=== PATIENT | male | born 1995 | race American Indian/Alaskan Native ===

== ENCOUNTER 2016-09-02 23:37 | Emergency (ER) | payer SELFPAY ==
[2016-09-02 23:46] VITALS: BP 127/75
[2016-09-03] MEDS ORDERED: TRIPLE ANTIBIOTIC TP ONE ×2 (03:18→03:21)
[2016-09-03] MEDS ORDERED: BOOSTRIX IM ONE (03:22)
--- NOTE | 2016-09-03 03:25 | Emergency Department Report ---
ED Laceration HPI - HPI Chief Complaint: Wound/Laceration Stated Complaint: RT EYE INJURY Time Seen by Provider: 09/03/16 02:55 Location: Head Severity: mild Laceration Symptoms: No Foreign Body Sensation, No Numbness, No Weakness, No Pain Other History: 20-year-old male presents to the ED complaining of laceration to right episcop[place] proximal to the eyebrow. Patient states he was playing basketball earlier today when another player bumped heads with his he got up laceration. Patient's states his vaccination is unknown. He denies head pain he denies blurry vision denies loss of vision or any other problems ED Review of Systems ROS: Stated complaint: RT EYE INJURY Other details as noted in HPI Constitutional: denies: chills, fever Eyes: denies: eye pain, eye discharge, vision change ENT: denies: ear pain, throat pain Respiratory: denies: cough, shortness of breath, wheezing Cardiovascular: denies: chest pain, palpitations Endocrine: no symptoms reported Gastrointestinal: denies: abdominal pain, nausea, diarrhea Genitourinary: denies: urgency, dysuria Musculoskeletal: denies: back pain, joint swelling, arthralgia Skin: denies: rash, lesions Neurological: denies: headache, weakness, paresthesias Psychiatric: denies: anxiety, depression Hematological/Lymphatic: denies: easy bleeding, easy bruising ED Past Medical Hx - Past Medical History Previous Medical History?: No - Surgical History Past Surgical History?: No - Social History Smoking Status: Never Smoker Substance Use Type: None - Medications Home Medications: Home Medications Medication Instructions Recorded Confirmed Last Taken Type Cephalexin [Keflex] 500 mg PO Q12HR #10 cap 09/03/16 Unknown Rx Ibuprofen [Motrin] 600 mg PO Q8H PRN #30 tablet 09/03/16 Unknown Rx Laceration Physical Exam - Exam General: Vital signs noted. No distress. Alert and acting appropriately. Wound Length (cm): 3 Laceration Location: Head Full Body Front + Back: 1 - 3 cm lac not involving eye lid Laceration Exam: Yes Normal Distal CMS, No Foreign Body, No Exposed Tendon, Vessel, or Nerve, No Tendon Injury ED Course Vital Signs 09/02/16 23:41 Temperature 98.6 F Pulse Rate 76 Respiratory 20 Rate Blood Pressure 127/75 O2 Sat by Pulse 98 Oximetry - Laceration /Wound Repair Right Face Wound Location: face Wound Length (cm): 3 Wound's Depth, Shape: superficial, linear Wound Explored: clean Irrigated w/ Saline (ccs): 100 Betadine Prep?: Yes Anesthesia: 1% Lidocaine Volume Anesthetic (ccs): 2 Wound Repaired With: sutures Suture Size/Type: 3:0 Number of Sutures: 6 Layer Closure?: No Sterile Dressing Applied?: Yes ED Medical Decision Making - Medical Decision Making 20-year-old female presents with facial laceration. ED course: Patient received tetanus booster The 3cm laceration wound was prepped and draped in sterile fashion. Anesthesia was achieved with 2mL of 1% lidocaine. The wound was irrigated with 100cc NS and explored. There were no foreign bodies The wound was reapproximated in 1 layer with 6 sutures suing with 3-0 Vicryl absorbable sutures in the dermis with interrupted sutures percutaneously. There was excellent reapproximation of the wound edges. The patient tolerated the procedure without complication. Discussed acute one care patient discussed to return for wound check. 5-7 days. Vital signs are stable patient is in acute distress patient tolerated procedure well Critical care attestation.: If time is entered above; I have spent that time in minutes in the direct care of this critically ill patient, excluding procedure time. ED Disposition Clinical Impression: Laceration of eyebrow without complication Qualifiers: Encounter type: initial encounter Laterality: right Qualified Code(s): S01.111A - Laceration without foreign body of right eyelid and periocular area, initial encounter Disposition: DC-01 TO HOME OR SELFCARE Is pt being admited?: No Does the pt Need Aspirin: No Condition: Stable Instructions: Suture Care (ED), Laceration (ED), Suture Removal (ED) Additional Instructions: Return in 10 days for suture removal Prescriptions: Cephalexin [Keflex] 500 mg PO Q12HR #10 cap Ibuprofen [Motrin] 600 mg PO Q8H PRN #30 tablet PRN Reason: Pain Referrals: KAIDEN MOBLEY MD [Primary Care Provider] - 3-5 Days ALADIR BARBER MD [Referring] - 3-5 Days [facility] [Outside] - 3-5 Days [facility] [Outside] - 3-5 Days Forms: Work/School Release Form(ED)
== END 2016-09-03 04:03 | disposition home or self-care (01) ==
LOC: ED 23:37
DX: S01.81XA Laceration without foreign body of other part of head, initial encounter (principal); W51.XXXA Accidental striking against or bumped into by another person, initial encounter; Y93.67 Activity, basketball; Y92.89 Other specified places as the place of occurrence of the external cause; Y99.8 Other external cause status
CPT/HCPCS: 90471; 90715; 99282; A6250

== ENCOUNTER 2021-05-24 04:52 | Emergency (ER) | payer SELFPAY ==
--- NOTE | 2021-05-24 06:34 | Emergency Department Report ---
ED Eye Problem HPI - General Chief complaint: Eye Problems Stated complaint: EYE PAIN;PINK EYE Time Seen by Provider: 05/24/21 06:16 Source: patient Mode of arrival: Ambulatory Limitations: No Limitations - History of Present Illness Initial comments: 25-year-old black male with a past medical history of asthma presents to the emergency department for evaluation of bilateral eye redness, cough, and congestion. He states that he started to have redness to his right about a week ago that has gotten progressively worse and then a couple days later, he started to have redness to his left also. He states that he has had clear drainage from his eyes and denies waking up with eyes crusted shut in the morning times. He also complains of rhinorrhea, cough, and congestion. He denies fever, shortness of breath, nausea vomiting. He states that he has tried Benadryl without improvement. chief complaint: eye redness -: Gradual, week(s) (1) Onset Description: gradual Location: both eyes Place: home, work If Injury: none Eye Symptoms: burning, redness, itching, discharge Severity scale (0 -10): 0 Context: recent uri Associated Symptoms: cough, rhinorrhea. denies: headache, neck pain, nausea/vomiting, fever, shortness of breath Treatments Prior to Arrival: other (Benadryl) - Related Data Previous Rx's Medication Instructions Recorded Last Taken Type Ibuprofen [Motrin] 600 mg PO Q8H PRN #30 tablet 09/03/16 Unknown Rx cephALEXin [Keflex] 500 mg PO Q12HR #10 cap 09/03/16 Unknown Rx ALBUTEROL Inhaler(NF) [VENTOLIN 2 puff IH Q4H PRN #1 inha 06/29/18 Unknown Rx Inhaler(NF)] Azithromycin [Zithromax Z-YOVANY] 250 mg PO DAILY 5 Days #6 tab 06/29/18 Unknown Rx Benzonatate [Tessalon Perles] 100 mg PO Q8HR PRN #30 capsule 06/29/18 Unknown Rx Ibuprofen [Ibuprofen 800] 800 mg PO TID PRN #30 tablet 06/29/18 Unknown Rx predniSONE [Deltasone] 40 mg PO QDAY 5 Days #10 tab 06/29/18 Unknown Rx Levocetirizine Dihydrochloride 5 mg PO QPM #30 tab 05/24/21 Unknown Rx [Xyzal] Olopatadine HCl [Pataday 0.2%] 1 drop OP QDAY #1 bottle 05/24/21 Unknown Rx methylPREDNISolone [Medrol 4MG 4 mg PO DAILY #1 pack 05/24/21 Unknown Rx DOSEPAK (21 tabs)] Allergies Allergy/AdvReac Type Severity Reaction Status Date / Time No Known Allergies Allergy Verified 09/02/16 23:41 ED Review of Systems ROS: Stated complaint: EYE PAIN;PINK EYE Other details as noted in HPI Comment: All other systems reviewed and negative Constitutional: denies: chills, fever Eyes: eye discharge. denies: eye pain, vision change ENT: congestion. denies: ear pain, throat pain, dental pain, hearing loss Respiratory: cough. denies: orthopnea, shortness of breath, SOB with exertion, SOB at rest Cardiovascular: denies: chest pain, palpitations, dyspnea on exertion Gastrointestinal: denies: abdominal pain, nausea, vomiting Genitourinary: denies: urgency, dysuria Musculoskeletal: denies: back pain Skin: denies: rash Neurological: denies: headache, weakness, numbness, paresthesias ED Past Medical Hx - Past Medical History Hx Asthma: Yes - Social History Smoking Status: Never Smoker Substance Use Type: None - Medications Home Medications: Home Medications Medication Instructions Recorded Confirmed Last Taken Type Ibuprofen [Motrin] 600 mg PO Q8H PRN #30 tablet 09/03/16 Unknown Rx cephALEXin [Keflex] 500 mg PO Q12HR #10 cap 09/03/16 Unknown Rx ALBUTEROL Inhaler(NF) [VENTOLIN 2 puff IH Q4H PRN #1 inha 06/29/18 Unknown Rx Inhaler(NF)] Azithromycin [Zithromax Z-YOVANY] 250 mg PO DAILY 5 Days #6 tab 06/29/18 Unknown Rx Benzonatate [Tessalon Perles] 100 mg PO Q8HR PRN #30 capsule 06/29/18 Unknown Rx Ibuprofen [Ibuprofen 800] 800 mg PO TID PRN #30 tablet 06/29/18 Unknown Rx predniSONE [Deltasone] 40 mg PO QDAY 5 Days #10 tab 06/29/18 Unknown Rx Levocetirizine Dihydrochloride 5 mg PO QPM #30 tab 05/24/21 Unknown Rx [Xyzal] Olopatadine HCl [Pataday 0.2%] 1 drop OP QDAY #1 bottle 05/24/21 Unknown Rx methylPREDNISolone [Medrol 4MG 4 mg PO DAILY #1 pack 05/24/21 Unknown Rx DOSEPAK (21 tabs)] ED Physical Exam - General Limitations: No Limitations General appearance: alert, in no apparent distress - Head Head exam: Present: atraumatic, normocephalic - Eye Eye exam: Present: EOMI. Absent: scleral icterus, nystagmus, periorbital swelling, periorbital tenderness - Expanded Eye Exam Expanded Eyelids: Swelling: Bilateral Pupils: Regular, Round: Bilateral, Reactive: Bilateral Sclera/Conjunctival: Injection: Bilateral - ENT ENT exam: Absent: normal exam (Bilateral nasal mucosal edema and turbinate swelling. Tenderness to palpation to frontal sinus areas.), normal orophraynx (Erythema to posterior oropharynx) - Expanded ENT Exam Expanded Throat exam: Positive: tonsillar erythema. Negative: tonsillomegaly, tonsillar exudate, R peritonsillar mass, L peritonsillar mass - Neck Neck exam: Present: normal inspection. Absent: lymphadenopathy - Respiratory Respiratory exam: Present: normal lung sounds bilaterally. Absent: respiratory distress - Cardiovascular Cardiovascular Exam: Present: bradycardia - GI/Abdominal GI/Abdominal exam: Absent: distended - Extremities Exam Extremities exam: Present: normal inspection - Back Exam Back exam: Present: normal inspection - Neurological Exam Neurological exam: Present: alert, oriented X3 - Psychiatric Psychiatric exam: Present: normal affect, normal mood - Skin Skin exam: Present: warm, dry, intact, normal color ED Course Vital Signs 05/24/21 05:04 Temperature 98.3 F Pulse Rate 59 L Respiratory 18 Rate Blood Pressure 125/81 O2 Sat by Pulse 98 Oximetry ED Medical Decision Making - Medical Decision Making 25-year-old black male with a past medical history of asthma presents to the emergency department for evaluation of bilateral eye redness, cough, and congestion. He states that he started to have redness to his right about a week ago that has gotten progressively worse and then a couple days later, he started to have redness to his left also. He states that he has had clear drainage from his eyes and denies waking up with eyes crusted shut in the morning times. He also complains of rhinorrhea, cough, and congestion. He denies fever, shortness of breath, nausea vomiting. He states that he has tried Benadryl without improvement. Exam consistent with allergic conjunctivitis and sinusitis. No fever noted. Patient will be treated with Medrol Dosepak along with Pataday and Xyzal for allergic rhinitis and sinusitis. He is advised to take medication as prescribed, drink plenty of noncaffeinated fluids, and follow-up with primary care provider if no improvement or worsening symptoms. He is advised to return to the emergency department for any concerning symptoms. Patient verbalizes understanding of and agreement with plan of care. Critical care attestation.: If time is entered above; I have spent that time in minutes in the direct care of this critically ill patient, excluding procedure time. ED Disposition Clinical Impression: Allergic conjunctivitis and rhinitis Qualifiers: Laterality: bilateral Qualified Code(s): H10.13 - Acute atopic conjunctivitis, bilateral Sinusitis Qualifiers: Sinusitis location: frontal Chronicity: acute Recurrence: non-recurrent Qualified Code(s): J01.10 - Acute frontal sinusitis, unspecified Disposition: 01 HOME / SELF CARE / HOMELESS Is pt being admited?: No Does the pt Need Aspirin: No Condition: Stable Instructions: Allergic Conjunctivitis, Adult, [id number], Sinusitis, Adult, [id number], Allergic Rhinitis, Adult, [id number] Additional Instructions: Take medications as prescribed. Follow-up with primary care provider if no improvement or worsening symptoms. Return to the emergency department as needed Prescriptions: methylPREDNISolone [Medrol 4MG DOSEPAK (21 tabs)] 4 mg PO DAILY #1 pack Olopatadine HCl [Pataday 0.2%] 1 drop OP QDAY #1 bottle Levocetirizine Dihydrochloride [Xyzal] 5 mg PO QPM #30 tab Referrals: LINDA GRAYSON MD [Primary Care Provider] - 3-5 Days Time of Disposition: 06:34
[2021-05-24 06:44] VITALS: BP 126/82
== END 2021-05-24 06:44 | disposition home or self-care (01) ==
LOC: ED 04:52
DX: H10.13 Acute atopic conjunctivitis, bilateral (principal); J45.909 Unspecified asthma, uncomplicated; J32.9 Chronic sinusitis, unspecified; Z79.899 Other long term (current) drug therapy
CPT/HCPCS: 99282

== ENCOUNTER 2021-06-17 09:35 | Emergency (ER) | payer OTHER ==
[2021-06-17 09:51] VITALS: BP 113/61
[2021-06-17] MEDS ORDERED: CYCLOBENZAPRINE 10 MG TAB PO ONE (11:36)
[2021-06-17] MEDS ORDERED: predniSONE 20 MG TAB PO ONE (11:36)
[2021-06-17] MEDS ORDERED: IBUPROFEN 800 MG TAB PO ONE (11:36)
--- NOTE | 2021-06-17 11:37 | Emergency Department Report ---
ED Back Pain/Injury HPI - General Chief Complaint: Back Pain/Injury Stated Complaint: LOW BACK PAIN Time Seen by Provider: 06/17/21 11:33 Source: patient Limitations: No Limitations - History of Present Illness Initial Comments: Patient is a 25-year-old male that comes to the ER complaining of low back pain. He was playing basketball and then that evening he noticed his back started to hurt. He has had this happen once before. He is complaining of paraspinal pain lumbar area on the right side. He is neuro intact. He denies signs and symptoms of cauda equina. No incontinence. No difficulty with defecation or urination. He is ambulatory with no difficulty. Pain is not waking him at night. He has no fever. Patient denies any fall associated with the onset of the pain. MD Complaint: back pain -: Gradual, days(s) Similar Symptoms Previously: Yes Place: home Radiation: none Quality: dull, aching Consistency: intermittent Improves With: immobilization Worsens With: movement Context: other Associated Symptoms: denies other symptoms - Related Data Previous Rx's Medication Instructions Recorded Last Taken Type Ibuprofen [Motrin] 600 mg PO Q8H PRN #30 tablet 09/03/16 Unknown Rx cephALEXin [Keflex] 500 mg PO Q12HR #10 cap 09/03/16 Unknown Rx ALBUTEROL Inhaler(NF) [VENTOLIN 2 puff IH Q4H PRN #1 inha 06/29/18 Unknown Rx Inhaler(NF)] Azithromycin [Zithromax Z-YOVANY] 250 mg PO DAILY 5 Days #6 tab 06/29/18 Unknown Rx Benzonatate [Tessalon Perles] 100 mg PO Q8HR PRN #30 capsule 06/29/18 Unknown Rx Ibuprofen [Ibuprofen 800] 800 mg PO TID PRN #30 tablet 06/29/18 Unknown Rx predniSONE [Deltasone] 40 mg PO QDAY 5 Days #10 tab 06/29/18 Unknown Rx Levocetirizine Dihydrochloride 5 mg PO QPM #30 tab 05/24/21 Unknown Rx [Xyzal] Olopatadine HCl [Pataday 0.2%] 1 drop OP QDAY #1 bottle 05/24/21 Unknown Rx methylPREDNISolone [Medrol 4MG 4 mg PO DAILY #1 pack 05/24/21 Unknown Rx DOSEPAK (21 tabs)] Cyclobenzaprine [Flexeril] 10 mg PO TID PRN #10 tablet 06/17/21 Unknown Rx Ibuprofen [Motrin] 800 mg PO Q8HR PRN #30 tablet 06/17/21 Unknown Rx predniSONE [Deltasone] 20 mg PO DAILY #5 tablet 06/17/21 Unknown Rx Allergies Allergy/AdvReac Type Severity Reaction Status Date / Time No Known Allergies Allergy Verified 06/17/21 09:51 ED Review of Systems ROS: Stated complaint: LOW BACK PAIN Other details as noted in HPI Comment: All other systems reviewed and negative ED Past Medical Hx - Past Medical History Medical history: asthma Surgical history: no surgical history Psychiatric history: no pertinent history ED Back Pain Physical Exam - Exam General: Vital signs noted. No distress. Alert and acting appropriately. Back/Abdomen: No Abdominal Tenderness, No Perithoracic Tenderness, No Perilumbar Tenderness, No Sacroiliac Tenderness, No Flank Tenderness, No Straight Leg Raise Pain Neuro: Yes Normal Sensation, Yes Normal DTR's, Yes Normal Gait (Ambulatory without difficulty, lumbar muscle spasm noted), No Motor Weakness ED Course Vital Signs 06/17/21 09:48 Temperature 97.9 F Pulse Rate 50 L Respiratory 16 Rate Blood Pressure 113/61 O2 Sat by Pulse 99 Oximetry ED Medical Decision Making - Medical Decision Making Patient comes to the emergency room with lumbar area pain, worse with movement, after playing basketball. Pain reproducible on exam. Neurologically intact. No signs and symptoms of cauda equina. No incontinence. Ambulatory without difficulty. Vital Signs 06/17/21 09:48 Temperature 97.9 F Pulse Rate 50 L Respiratory 16 Rate Blood Pressure 113/61 O2 Sat by Pulse 99 Oximetry Medicated with prednisone Flexeril and Motrin while in the ER. Will discharge patient home with discharge plan of care including diet, activity, medications and follow-up. He verbalizes understanding of discharge plan of care - Differential Diagnosis Musculoskeletal strain Critical care attestation.: If time is entered above; I have spent that time in minutes in the direct care of this critically ill patient, excluding procedure time. ED Disposition Clinical Impression: Musculoskeletal pain, Lumbar strain Disposition: 01 HOME / SELF CARE / HOMELESS Is pt being admited?: No Does the pt Need Aspirin: No Condition: Stable Instructions: Muscle Strain, [id number] Additional Instructions: Warm compresses and baths Meds as ordered today Stretching and cooling down as we discussed Follow-up with PCP if this persist. Have given you referral below Prescriptions: predniSONE [Deltasone] 20 mg PO DAILY #5 tablet Cyclobenzaprine [Flexeril] 10 mg PO TID PRN #10 tablet PRN Reason: Muscle Spasm Ibuprofen [Motrin] 800 mg PO Q8HR PRN #30 tablet PRN Reason: Pain, Moderate (4-6) Referrals: LINDA GRAYSON MD [Staff Physician] - 3-5 Days Time of Disposition: 11:35
== END 2021-06-17 11:55 | disposition home or self-care (01) ==
LOC: ED 09:35
DX: S39.012A Strain of muscle, fascia and tendon of lower back, initial encounter (principal); Z79.899 Other long term (current) drug therapy; W21.05XA Struck by basketball, initial encounter; Y93.67 Activity, basketball; Y92.89 Other specified places as the place of occurrence of the external cause; Y99.8 Other external cause status
CPT/HCPCS: 99282